=== PATIENT | male | born 1985 | race African-American/Black ===

== ENCOUNTER 2017-01-24 23:12 | Emergency (ER) | payer OTHER, BC ==
[~2017-01-24] VITALS: Ht 172.7 cm; Wt 78.0 kg
[2017-01-24 23:14] VITALS: BP 146/76; PULSE 69; RESP 16; TEMP 97.7; O2SAT 98
--- NOTE | 2017-01-25 00:12 | PD ---
HPI Chief Complaint: Laceration/Skin Injury Time Seen by Provider: 00:00 Travel History International Travel<30 days: No Contact w/Intl Traveler<30days: No Traveled to known affect area: No History of Present Illness HPI [id number] male presents for evaluation of a superficial fingertip avulsions to the left thumb. 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 He now has bleeding and pain, aching, worse with palpation. Last tetanus vaccination 2 years ago. No other complaints. PFSH Social History Alcohol Use: No Tobacco Use: No Substance Use: No Allergies-Medications (Allergen,Severity, Reaction): Coded Allergies: No Known Allergies (Unverified , 01/25/17) Reported Meds & Prescriptions Reported Meds & Active Scripts Active Keflex (Cephalexin) 500 Mg Cap 500 Mg PO Q8H 5 Days Review of Systems Musculoskeletal: Positive: Pain Skin: Positive Other (bleeding, laceration right thumb.) Physical Exam Narrative GENERAL: Well-developed well-nourished male in no acute distress SKIN: Warm and dry. Examination of the left thumb reveals a superficial fingertip skin avulsion of approximately 1 mm depth and 0.5 cm in length. There is no bone involvement or visibility. MUSCULOSKELETAL: Skin as noted above with non-arterial oozing of blood. Data Data Last Documented VS Vital Signs Date Time Temp Pulse Resp B/P Pulse Ox O2 Delivery O2 Flow Rate FiO2 01/24/17 23:14 97.7 69 16 146/76 98 Room Air Orders Lidocaine Pf 1% Inj (Xylocaine-Mpf 1% In (01/25/17 00:15) Tetanus/Diphtheria Tox Adult (Tetanus/Di (01/25/17 00:15) Gelatin 12 Mm/7 Mm Top (Gelfoam 12 Mm/7 (01/25/17 00:15) Cephalexin (Keflex) (01/25/17 00:45) MDM Medical Decision Making Medical Screen Exam Complete: Yes Emergency Medical Condition: Yes Medical Record Reviewed: Yes Differential Diagnosis Superficial fingertip avulsion versus partial amputation versus cutaneous laceration Narrative Course 31-year-old [id number] male presents with a superficial fingertip tissue avulsion on the left distal thumb of approximately 1 mm depth. There is no bony visibility. This will heal by secondary intention. Local anesthetic will be applied, ring tourniquet will be applied, irrigation will be performed, in order to help control bleeding Gelfoam and pressure dressing will be applied and then the ring tourniquet will be removed. The patient will be referred for outpatient follow-up with hand surgeon. He will be started on Keflex. Diagnosis Primary Impression: Soft tissue avulsion Referrals: Polo Post MD Additional Instructions: Follow-up with a hand surgeon such as Dr. Post in one week, call to make an appointment. On a daily basis, wash the wound gently with soap and water and apply antibiotic cream and clean bandages. Take the antibiotics as prescribed. Return for any emergent medical conditions. Med/Other Pt SpecificInfo: Prescription(s) given, Wound Care Scripts Cephalexin (Keflex)500 Mg [id number] Mg PO Q8H 5 Days Ref 0 Prov:Mari Merritt MD 01/25/17 Disposition: 01 DISCHARGE HOME Condition: Stable Geoffrey Scott Jan 25, 2017 00:12
[2017-01-25] MEDS ORDERED: GELATIN 12 MM/7 MM FOAM TOPICAL ONE (00:15)
[2017-01-25] MEDS ORDERED: LIDOCAINE HCL 1% PF 30 ML VIAL INFIL ONE (00:15)
[2017-01-25] MEDS ORDERED: TETANUS/DIPHTHERIA TOXOID ADULT 0.5 ML VIAL IM ONE (00:15)
[2017-01-25] MEDS ORDERED: CEPH-460 PO (00:34)
[2017-01-25] MEDS ORDERED: CEPHALEXIN MONOHYDRATE 500 MG CAP PO ONE (00:45)
== END 2017-01-25 01:04 | disposition home or self-care (01) ==
LOC: NEPD 23:12
DX: S61.002A Unspecified open wound of left thumb without damage to nail, initial encounter (principal); W26.0XXA Contact with knife, initial encounter; Y92.59 Other trade areas as the place of occurrence of the external cause; Y99.0 Civilian activity done for income or pay
CPT/HCPCS: 99283

== ENCOUNTER 2017-09-07 00:13 | Observation (INO) | payer BC, OTHER ==
[~2017-09-07] VITALS: Ht 172.7 cm; Wt 92.0 kg
[~2017-09-07 00:13] MED LIST: CEPH-460 PO
[2017-09-07 00:39] VITALS: BP 139/63; PULSE 58; RESP 18; TEMP 97.1; O2SAT 98
--- NOTE | 2017-09-07 01:09 | RADRPT ---
EXAM DATE/TIME: 09/07/2017 00:56 [facility] COMPARISON: No previous studies available for comparison. INDICATIONS : Short of breath. MEDICAL HISTORY : None. SURGICAL HISTORY : None. ENCOUNTER: Initial ACUITY: 1 day PAIN SCORE: 4/10 LOCATION: Bilateral chest FINDINGS: PA and lateral views of the chest demonstrate the lungs to be symmetrically aerated without evidence of mass, infiltrate or effusion. The cardiomediastinal contours are unremarkable. Osseous structure s are intact. CONCLUSION: The lungs are clear. Terrence Helm MD on September 07, 2017 at 1:07 Board Certified Radiologist. This report was verified electronically.
[2017-09-07 01:27] LABS: AUTOMATED NEUTROPHIL # 4.9 TH/MM3 (1.8-7.7); BASOPHIL % 0.3 % (0.0-2.0); EOSINOPHIL # 0.2 TH/MM3 (0-0.4); EOSINOPHIL % 2.2 % (0.0-4.0); HEMATOCRIT 42.9 % (39.0-51.0); HEMOGLOBIN 14.9 GM/DL (13.0-17.0); LYMPH % 30.9 % (9.0-44.0); LYMPHOCYTE # 2.7 TH/MM3 (1.0-4.8); MEAN CELL VOLUME 95.2 FL (80.0-100.0); MEAN CORPUSCULAR HGB CONC 34.6 % (32.0-36.0); MEAN PLATELET VOLUME 6.8 FL (7.0-11.0); MONO % 10.4 % (0.0-8.0); MONOCYTE # 0.9 TH/MM3 (0-0.9); NEUT % 56.2 % (16.0-70.0); PLATELET COUNT 241 TH/MM3 (150-450); RED BLOOD COUNT 4.51 MIL/MM3 (4.50-5.90); RED CELL DISTRIBUTION WIDTH 12.2 % (11.6-17.2); WHITE BLOOD COUNT 8.8 TH/MM3 (4.0-11.0)
[2017-09-07 01:37] VITALS: BP 146/81; PULSE 60; RESP 18; O2SAT 100
[2017-09-07 01:46] LABS: BICARBONATE 29.9 MEQ/L (21.0-32.0); BLOOD UREA NITROGEN 24 MG/DL (7-18); CALCIUM 8.7 MG/DL (8.5-10.1); CHLORIDE 104 MEQ/L (98-107); CREATININE 0.98 MG/DL (0.60-1.30); GLOMERULAR FILTRATION RATE 109 ML/MIN (>89); GLUCOSE,RANDOM 84 MG/DL (74-106); SODIUM (NA) 141 MEQ/L (136-145)
--- NOTE | 2017-09-07 01:46 | PD ---
HPI Chief Complaint: Chest Pain Time Seen by Provider: 01:43 Travel History International Travel<30 days: No Contact w/Intl Traveler<30days: No Traveled to known affect area: No History of Present Illness HPI 32-year-old male came to the emergency room with history of chest pain on and off for past week and a half. Patient says that since it was not getting better he decided to come in and be checked out. Pain is substernal with no radiation. He says it's worse if he pushes on it. But at other times it just comes out of nowhere. Vital signs are stable. He's never had this kind of pain in the past. Patient is not on any medications or any diagnosed medical condition. Is not a smoker and denies doing any drugs. History of heart attacks. Patient has never had a stress test in the past. No radiation of the pain. No other associated symptoms PFSH Past Medical History Narrative Medical List of his past medical, surgical, social and family history is reviewed from the nursing note. Medical History: Denies Significant Hx Diminished Hearing: No Immunizations Current: Yes Tetanus Vaccination: < 5 Years Influenza Vaccination: No Past Surgical History Surgical History: No Previous Surgery Social History Alcohol Use: No Tobacco Use: No Substance Use: No Allergies-Medications (Allergen,Severity, Reaction): Coded Allergies: No Known Allergies (Unverified Adverse Reaction, Unknown, 09/07/17) Comments No known drug allergies Reported Meds & Prescriptions Reported Meds & Active Scripts Active No Active Prescriptions or Reported Medications Narrative Medication List of his home medications reviewed from the nursing note Review of Systems Except as stated in HPI: all other systems reviewed are Neg Cardiovascular: Positive: Chest Pain or Discomfort Physical Exam Narrative GENERAL: Awake, alert, no obvious distress SKIN: Focused skin assessment warm/dry. HEAD: Atraumatic. Normocephalic. EYES: Pupils equal and round. No scleral icterus. No injection or drainage. ENT: No nasal bleeding or discharge. Mucous membranes pink and moist. NECK: Trachea midline. No JVD. CARDIOVASCULAR: Regular rate and rhythm. No murmur appreciated. RESPIRATORY: No accessory muscle use. Clear to auscultation. Breath sounds equal bilaterally. GASTROINTESTINAL: Abdomen soft, non-tender, nondistended. Hepatic and splenic margins not palpable. MUSCULOSKELETAL: No obvious deformities. No clubbing. No cyanosis. No edema. NEUROLOGICAL: Awake and alert. No obvious cranial nerve deficits. Motor grossly within normal limits. Normal speech. PSYCHIATRIC: Appropriate mood and affect; insight and judgment normal. Data Data Last Documented VS Orders Orders Electrocardiogram (09/07/17 00:42) Complete Blood Count With Diff (09/07/17 00:42) Basic Metabolic Panel (Bmp) (09/07/17 00:42) Ckmb (Isoenzyme) Profile (09/07/17 00:42) Troponin I (09/07/17 00:42) Iv Access Insert/Monitor (09/07/17 00:42) Ecg Monitoring (09/07/17 00:42) Oxygen Administration (09/07/17 00:42) Oximetry (09/07/17 00:42) Chest, Pa & Lat (09/07/17 00:42) CKMB (09/07/17 01:14) CKMB% (09/07/17 01:14) Aspirin Chew (Aspirin Chew) (09/07/17 02:00) Admit Order (Ed Use Only) (09/07/17 01:53) Place In Observation (09/07/17 01:53) Activity Bed Rest With Brp (09/07/17 01:53) Vital Signs (Adult) Q4H (09/07/17 01:53) Cardiac Rhythm .As Directed (09/07/17 01:53) Notify Dr: Other .PRN (09/07/17 01:53) Notify Parameters (09/07/17 01:53) Resp Oxygen Nasal Cannula (09/07/17 ) Ckmb (Isoenzyme) Profile (09/07/17 01:53) Ckmb (Isoenzyme) Profile (09/07/17 04:53) Troponin I (09/07/17 01:53) Troponin I (09/07/17 04:53) Electrocardiogram (09/07/17 01:53) Electrocardiogram (09/07/17 04:53) ^ Obtain (09/07/17 01:53) Sodium Chloride 0.9% Flush (Ns Flush) (09/07/17 02:00) Sodium Chloride 0.9% Flush (Ns Flush) (09/07/17 09:00) Acetaminophen (Tylenol) (09/07/17 02:00) Chemical Process Operator / Telemetry ELADIA.Q8H (09/07/17 01:53) Labs Laboratory Tests Test 09/07/17 01:14 White Blood Count 8.8 TH/MM3 Red Blood Count 4.51 MIL/MM3 Hemoglobin 14.9 GM/DL Hematocrit 42.9 % Mean Corpuscular Volume 95.2 FL Mean Corpuscular Hemoglobin 33.0 PG Mean Corpuscular Hemoglobin Concent 34.6 % Red Cell Distribution Width 12.2 % Platelet Count 241 TH/MM3 Mean Platelet Volume 6.8 FL Neutrophils (%) (Auto) 56.2 % Lymphocytes (%) (Auto) 30.9 % Monocytes (%) (Auto) 10.4 % Eosinophils (%) (Auto) 2.2 % Basophils (%) (Auto) 0.3 % Neutrophils # (Auto) 4.9 TH/MM3 Lymphocytes # (Auto) 2.7 TH/MM3 Monocytes # (Auto) 0.9 TH/MM3 Eosinophils # (Auto) 0.2 TH/MM3 Basophils # (Auto) 0.0 TH/MM3 CBC Comment DIFF FINAL Differential Comment Blood Urea Nitrogen 24 MG/DL Creatinine 0.98 MG/DL Random Glucose 84 MG/DL Calcium Level 8.7 MG/DL Sodium Level 141 MEQ/L Potassium Level 4.0 MEQ/L Chloride Level 104 MEQ/L Carbon Dioxide Level 29.9 MEQ/L Anion Gap 7 MEQ/L Estimat Glomerular Filtration Rate 109 ML/MIN Total Creatine Kinase 502 U/L Creatine Kinase MB 8.3 NG/ML Creatine Kinase MB % 1.7 % Troponin I LESS THAN 0.02 NG/ML MDM Medical Decision Making Medical Screen Exam Complete: Yes Emergency Medical Condition: Yes Medical Record Reviewed: Yes Interpretation(s) Twelve-lead EKG was reviewed by me. Normal sinus rhythm, normal axis, nonspecific ST-T wave changes. Heart rate of 63 bpm. Differential Diagnosis ACS, non-STEMI, atypical chest pain Narrative Course 2:22 AM blood test results are back. CPK slightly elevated. Rest of the blood test results are within normal limit. Patient was given 2 baby aspirin. I'll admit him to the chest pain center to be ruled out. Procedures EKG Prior to Arrival: No Diagnosis Primary Impression: Chest pain Qualified Codes: R07.9 - Chest pain, unspecified Admitting Information Admitting Physician Requests: Observation Scripts No Active Prescriptions or Reported Meds Hank Vazquez MD Sep 07, 2017 01:46
[2017-09-07 01:50] LABS: TROPONIN I LESS THAN 0.02 NG/ML (0.02-0.05)
[2017-09-07] MEDS ORDERED: SODIUM CHLORIDE 0.9% FLUSH 10 ML FLUSH IV FLUSH PRN (02:00)
[2017-09-07] MEDS ORDERED: ASPIRIN 81 MG CHEW TAB CHEW ONE (02:00)
[2017-09-07] MEDS ORDERED: ACETAMINOPHEN 500 MG CPLT PO PRN (02:00)
[2017-09-07 04:40] LABS: TROPONIN I LESS THAN 0.02 NG/ML (0.02-0.05)
[2017-09-07 04:59] VITALS: PULSE 54; RESP 16; O2SAT 99
[2017-09-07 07:51] LABS: TROPONIN I LESS THAN 0.02 NG/ML (0.02-0.05)
[2017-09-07 08:23] VITALS: BP 137/84; PULSE 66; RESP 17; O2SAT 97
[2017-09-07] MEDS ORDERED: SODIUM CHLORIDE 0.9% FLUSH 10 ML FLUSH IV FLUSH SCH (09:00)
--- NOTE | 2017-09-07 09:10 | HHI.DCPOC ---
Discharge Care Plan Diagnosis: (1) Chest pain Goals to Promote Your Health * To prevent worsening of your condition and complications * To maintain your health at the optimal level Directions to Meet Your Goals Take your medications as prescribed Follow your dietary instruction Follow activity as directed Keep your appointments as scheduled Take your immunizations and boosters as scheduled If your symptoms worsen call your PCP, if no PCP go to Urgent Care Center or Emergency Room Smoking is Dangerous to Your Health. Avoid second hand smoke Call the 24-hour hour crisis hotline for domestic abuse at Dc Cardenas Sep 07, 2017 09:10
--- NOTE | 2017-09-07 09:20 | HHI.HP ---
HPI Primary Care Physician No Primary Care Physician Chief Complaint Chest pain History of Present Illness This is a 32-year-old male the presents to ED via private vehicle with a complaint of a constant central chest discomfort for the past week. Describes as a sticking type of discomfort. Worse level 8 out of 10. He seems to believe it worsens when he lifts something heavy or tries to push something heavy. No associated shortness of breath, nausea, or diaphoresis. Has not had chest discomforts in the past. Cannot recall anything that may have caused the discomfort. Cannot recall ever having a stress test. Denies any recent illnesses. Denies illicit drug use. Denies tobacco abuse. Review of Systems General: Patient denies fevers, chills, and recent travel. HEENT: Patient denies headache, sore throat, difficulty swallowing. Cardiovascular: Has the chest discomfort as mentioned above. Denies sensation of heart beating rapidly or irregularly. No syncope. Denies diaphoresis. Respiratory: Denies shortness of breath or inspirational chest discomfort. Denies coughing wheezing or hemoptysis. GI: Patient denies nausea, vomiting, diarrhea, abdominal pain, bloody stools. Musculoskeletal: Patient denies joint pain or edema. Denies calf pain or edema. Neurovascular: Patient denies numbness, tingling, weakness in extremities. Denies headache. Endocrine: Denies polyuria and polydipsia. Hematologic: Denies easy bruising. Skin: Denies rash or itching. Past Family Social History Allergies: Coded Allergies: No Known Allergies (Unverified Adverse Reaction, Unknown, 09/07/17) Past Medical History Denies hypertension, hyperlipidemia, diabetes, and CAD. Past Surgical History Denies prior surgeries. Reported Medications Reported Meds & Active Scripts Active No Active Prescriptions or Reported Medications Active Ordered Medications Current Medications Medications (Trade) Dose Ordered Sig/Evan Route Start Time Stop Time Status Last Admin (NS Flush) 2 ml UNSCH PRN IV FLUSH 09/07/17 02:00 (NS Flush) 2 ml BID IV FLUSH 09/07/17 09:00 (Tylenol) 500 mg Q4H PRN PO 09/07/17 02:00 Family History Denies family history of CAD. Social History Non-smoker. Denies alcohol or illicit drug use. Physical Exam Vital Signs Vital Signs Date Time Temp Pulse Resp B/P (MAP) Pulse Ox O2 Delivery O2 Flow Rate FiO2 3/20/18 08:23 66 17 137/84 (101) 97 Room Air 09/07/17 04:59 54 16 99 Room Air 09/07/17 01:37 60 18 146/81 (102) 100 Room Air 09/07/17 00:39 97.1 58 18 139/63 (88) 98 Physical Exam GENERAL: This is a well-nourished, well-developed patient, in no apparent distress. Patient speaks in clear complete sentences. Patient is pleasant. HEENT: Head is atraumatic and normocephalic. Neck is supple without lymphadenopathy and trachea is midline. No JVD or carotid bruits. CARDIOVASCULAR: Regular rate and rhythm without murmurs, gallops, or rubs. RESPIRATORY: Clear to auscultation. Breath sounds equal bilaterally. No wheezes , rales, or rhonchi. There is reproducible chest wall tenderness on palpating over the sternum. This is a similar discomfort that he has been having. No use of accessory muscles. GASTROINTESTINAL: Abdomen is nontender, nondistended. Abdomen soft. No obvious pulsatile mass or bruit. No CVA tenderness. Strong femoral pulses bilaterally. Normal bowel sounds in all quadrants. MUSCULOSKELETAL: Patient is moving upper and lower extremities freely. No calf tenderness or edema, no Homans sign. Strong pulses in upper and lower extremities. NEUROLOGICAL: Patient is alert and oriented. Cranial nerves 2-12 are grossly intact. No focal deficits and speech is clear. SKIN: No rash and turgor is normal. Laboratory Laboratory Tests Test 09/07/17 01:14 09/07/17 03:55 09/07/17 06:25 White Blood Count 8.8 Red Blood Count 4.51 Hemoglobin 14.9 Hematocrit 42.9 Mean Corpuscular Volume 95.2 Mean Corpuscular Hemoglobin 33.0 Mean Corpuscular Hemoglobin Concent 34.6 Red Cell Distribution Width 12.2 Platelet Count 241 Mean Platelet Volume 6.8 Neutrophils (%) (Auto) 56.2 Lymphocytes (%) (Auto) 30.9 Monocytes (%) (Auto) 10.4 Eosinophils (%) (Auto) 2.2 Basophils (%) (Auto) 0.3 Neutrophils # (Auto) 4.9 Lymphocytes # (Auto) 2.7 Monocytes # (Auto) 0.9 Eosinophils # (Auto) 0.2 Basophils # (Auto) 0.0 CBC Comment DIFF FINAL Differential Comment Blood Urea Nitrogen 24 Creatinine 0.98 Random Glucose 84 Calcium Level 8.7 Sodium Level 141 Potassium Level 4.0 Chloride Level 104 Carbon Dioxide Level 29.9 Anion Gap 7 Estimat Glomerular Filtration Rate 109 Total Creatine Kinase 502 444 388 Creatine Kinase MB 8.3 7.2 7.3 Creatine Kinase MB % 1.7 1.6 1.9 Troponin I LESS THAN 0.02 LESS THAN 0.02 LESS THAN 0.02 Result Diagram: 09/07/174 09/07/17113 Imaging Last 48 hours Impressions Chest X-Ray 09/07/17 004 Signed Impressions: Service Date/Time: Thursday, September 07, 2017 00:56 - CONCLUSION: The lungs are clear. Terrence eHlm MD Course EKGs are sinus rhythm to sinus bradycardia with associated [address] segment depressions. Pattern of early repolarization. Caprini VTE Risk Assessment Caprini VTE Risk Assessment: No/Low Risk (score <= 1) Caprini Risk Assessment Model Point Value = 1 Point Value = 2 Point Value = 3 Point Value = 5 Age 41-60 Minor surgery BMI > 25 kg/m2 Swollen legs Varicose veins or History of unexplained or recurrent spontaneous Oral contraceptives or hormone replacement Sepsis (< 1 month) Serious lung disease, including pneumonia (< 1 month) Abnormal pulmonary function Acute myocardial infarction Congestive heart failure (< 1 month) History of inflammatory bowel disease Medical patient at bed rest Age 61-74 Arthroscopic surgery Major open surgery (> 45 min) Laparoscopic surgery (> 45 min) Malignancy Confined to bed (> 72 hours) Immobilizing plaster cast Central venous access Age >= 75 History of VTE Family history of VTE Factor V Leiden Prothrombin [id number] Lupus anticoagulant Anticardiolipin antibodies Elevated serum homocysteine Heparin-induced thrombocytopenia Other congenital or acquired thrombophilia Stroke (< 1 month) Elective arthroplasty Hip, pelvis, or leg fracture Acute spinal cord injury (< 1 month) Prophylaxis Regimen Total Risk Factor Score Risk Level Prophylaxis Regimen 0-1 Low Early ambulation 2 Moderate Order ONE of the following: *Sequential Compression Device (SCD) *Heparin 5000 units SQ BID 3-4 Higher Order ONE of the following medications: *Heparin 5000 units SQ TID *Enoxaparin/Lovenox 40 mg SQ daily (WT < 150 kg, CrCl > 30 mL/min) *Enoxaparin/Lovenox 30 mg SQ daily (WT < 150 kg, CrCl > 10-29 mL/min) *Enoxaparin/Lovenox 30 mg SQ BID (WT < 150 kg, CrCl > 30 mL/min) AND/OR *Sequential Compression Device (SCD) 5 or more Highest Order ONE of the following medications: *Heparin 5000 units SQ TID (Preferred with Epidurals) *Enoxaparin/Lovenox 40 mg SQ daily (WT < 150 kg, CrCl > 30 mL/min) *Enoxaparin/Lovenox 30 mg SQ daily (WT < 150 kg, CrCl > 10-29 mL/min) *Enoxaparin/Lovenox 30 mg SQ BID (WT < 150 kg, CrCl > 30 mL/min) AND *Sequential Compression Device (SCD) Assessment and Plan Assessment and Plan * Atypical chest pain: Patient has had serial cardiac enzymes and EKGs for ruling out purposes. He was seen by Dr. Peraza of cardiology in the chest pain center and will have a Jose Roberto protocol ETT. He will be discharged home if the stress test is nonischemic with instructions to follow-up with PCP. Use [id number] anti-inflammatories and moist heat. Return to ED for interval issues. Dc Cardenas Sep 07, 2017 09:20
--- NOTE | 2017-09-07 18:54 | EKG ---
Date Performed: 09/07/2017 Time Performed: 06:25:14 PTAGE: 32 years EKG: SINUS BRADYCARDIA EARLY REPOLARIZATION BORDERLINE ECG Since PREVIOUS TRACING , no significant change noted PREVIOUS TRACIN09/07/2017 01.01 DOCTOR: Agnes Peraza Interpretating Date/Time 09/07/2017 18:53:55
--- NOTE | 2017-09-07 18:56 | EKG ---
Date Performed: 09/07/2017 Time Performed: 03:52:27 PTAGE: 32 years EKG: SINUS BRADYCARDIA EARLY REPOLARIZATION BORDERLINE ECG Since PREVIOUS TRACING , no significant change noted PREVIOUS TRACIN09/07/2017 01.01 DOCTOR: Agnes Peraza Interpretating Date/Time 09/07/2017 18:54:31
--- NOTE | 2017-09-07 18:56 | TR ---
Date Performed: 09/07/2017 Time Performed: 08:48:51 DOCTOR: Agnes Peraza DRUG LIST: CLINICAL HISTORY: CHEST PAIN R/O ACS REASON FOR TEST: REASON FOR ENDING: OBSERVATION: CONCLUSION: DEAN PROTOCOL ETT. NO CP OR SOB. TEST STOPPED AFTER EXCEEDING GOAL HR SECONDARY TO LEG FATIGUE.Maximum AV=532 % Max HR Achieved=89.0% Maximum AD=871/80 Total Exercise Time=10:59 COMMENTS: No ischemia
--- NOTE | 2017-09-07 18:58 | EKG ---
Date Performed: 09/07/2017 Time Performed: 01:01:29 PTAGE: 32 years EKG: Sinus rhythm EARLY REPOLARIZATION BORDERLINE ECG NO PREVIOUS TRACING DOCTOR: Agnes Peraza Interpretating Date/Time 09/07/2017 18:57:39
== END 2017-09-07 09:30 | disposition home or self-care (01) ==
LOC: NEPE 00:13 → NEDA 01:55 → NEDH 06:45
PROVIDERS: ADMIT Internal Medicine Cardiovascular Disease; ATTEND Internal Medicine Cardiovascular Disease
DX: R07.89 Other chest pain (principal); R06.02 Shortness of breath; R00.1 Bradycardia, unspecified; I25.2 Old myocardial infarction
CPT/HCPCS: 71046; 80048; 82550; 82552; 84484; 85025; 93005; 93017; 99285; G0378